=== PATIENT | male | born 1935 | race Caucasian/White ===

== ENCOUNTER → 2016-04-12 | Outpatient (CLI) | payer OTHER, MEDICARE | LOC: BHFA 15:30 | PROVIDERS: ATTEND Internal Medicine Cardiovascular Disease | DX: I47.1 Supraventricular tachycardia (principal) ==

== ENCOUNTER → 2016-06-07 | Outpatient (CLI) | payer OTHER, MEDICARE | LOC: BHFA 15:45 | PROVIDERS: ATTEND Internal Medicine Cardiovascular Disease | DX: I49.5 Sick sinus syndrome (principal); Z95.0 Presence of cardiac pacemaker; I47.1 Supraventricular tachycardia; I47.2 Ventricular tachycardia ==

== ENCOUNTER → 2016-06-26 | Outpatient (CLI) | payer OTHER, MEDICARE | LOC: BHFA 13:15 | PROVIDERS: ATTEND Internal Medicine Interventional Cardiology | DX: I47.1 Supraventricular tachycardia (principal); I49.5 Sick sinus syndrome; R55 Syncope and collapse | CPT/HCPCS: 78452; 93017; 93306; A9500; J2785 ==